=== PATIENT | male | born 1960 | race Caucasian/White ===

== ENCOUNTER → 2017-10-19 | Outpatient (CLI) | payer OTHER ==
[2017-06-11 11:54] VITALS: BMI 29.2
[~2017-10-19] MED LIST: ALBU8.5H IH; ALLO-2; ALLO-2 PO; AMLO-96 PO; CEP250 PO; CITA-139 PO; DUL100/5PT INH; ESOM40CA42 PO; IBUP600T22 PO; INDO-1 PO; KETC15T TP; LISI-346 PO; LISI-362 PO; LISI20TA29 PO; LOSA100T67 PO; METO25TA23 PO; METO50TA19 PO; MOD; MOD PO; MULT-859 PO; NICO-219 BC; PNEI IJ; PRED20TA6 PO; SIMV-42 PO; SIMV-54 PO; TRIA15CR40 TP
[2017-10-19 16:20] LABS: PLATELET COUNT, AUTOMATED 275 K/uL (150-450)
== END ==
LOC: LAB 16:08
PROVIDERS: ATTEND Nurse Practitioner Family
DX: M25.461 Effusion, right knee (principal)
CPT/HCPCS: 36415; 82040; 82247; 82310; 82374; 82435; 82565; 82947; 84075; 84132; 84155; 84295; 84450; 84460; 84520; 85025; 86140

== ENCOUNTER → 2018-01-04 | Outpatient (CLI) | payer OTHER ==
[2017-06-11 11:54] VITALS: BMI 29.2
[~2018-01-04] MED LIST changes: -CITA-139 PO; +CITA-145 PO; +METO-235 PO; +PNEI IM; +VARI50KI IA
[2018-01-04 07:44] LABS: PLATELET COUNT, AUTOMATED 278 K/uL (150-450)
[2018-01-04 07:57] LABS: LDL CHOLESTEROL 34 mg/dl
== END ==
LOC: LAB 07:29
PROVIDERS: ATTEND Nurse Practitioner Family
DX: I10 Essential (primary) hypertension (principal); E78.5 Hyperlipidemia, unspecified; D64.9 Anemia, unspecified; R73.01 Impaired fasting glucose
CPT/HCPCS: 36415; 82040; 82247; 82310; 82374; 82435; 82465; 82565; 82947; 83036; 83718; 84075; 84132; 84155; 84295; 84443; 84450; 84460; 84478; 84520; 85025

== ENCOUNTER → 2018-06-21 | Outpatient (CLI) | payer OTHER ==
[2017-06-11 11:54] VITALS: BMI 29.2
[~2018-06-21] MED LIST changes: +AMLO-111 PO; -AMLO-96 PO; -INDO-1 PO; +INDO-21 PO; -LOSA100T67 PO; +LOSA100T75 PO
== END ==
LOC: LAB 14:39
PROVIDERS: ATTEND Nurse Practitioner Family
DX: R73.01 Impaired fasting glucose (principal); R94.5 Abnormal results of liver function studies; G62.9 Polyneuropathy, unspecified
CPT/HCPCS: 36415; 82607; 82746; 83036; 84425; 86706; 86707; 86803; 87340; 87350

== ENCOUNTER → 2019-01-03 | Outpatient (CLI) | payer OTHER ==
[2017-06-11 11:54] VITALS: BMI 29.2
[~2019-01-03] MED LIST changes: -AMLO-111 PO; +AMLO-125 PO; +HEPA20VI IM; +HEPA50VI4 IM; +METO-233 PO; +NIFE-15 PO
== END ==
LOC: LAB 16:05
PROVIDERS: ATTEND Nurse Practitioner Family
DX: R74.8 Abnormal levels of other serum enzymes (principal); E87.1 Hypo-osmolality and hyponatremia; I10 Essential (primary) hypertension
CPT/HCPCS: 36415; 82040; 82247; 82310; 82374; 82435; 82565; 82947; 84075; 84132; 84155; 84295; 84450; 84460; 84520